=== PATIENT | male | born 1930 | race Caucasian/White ===

== ENCOUNTER 2018-11-24 17:01 | Inpatient (IN) ==
[2018-11-24] MEDS ORDERED: DUONEB (A & A) INH ONE (17:24)
[2018-11-24] MEDS ORDERED: SOLU-MEDROL IV ONE (17:24)
[2018-11-24 18:10] LABS: ALLEN TEST NO; BE 2.1 mmoll (-3.0-3.0); BLOOD TYPE ARTERIAL; HCO3-(ACT) 26.4 mmoll (20.0-26.0); O2(CT) 17.6 mL/dL (15.0-23.0); O2HB 92.9 % (95.0-99.0); PCO2(98.6) 35 mmHg (35-45); PO2(98.6) 67 mmHg (60-100); SAMPLE BLOOD; SAO2 93.9 % (95.0-100.0); THB 13.5 g/dL (11.5-17.4); pH(98.6) 7.47 (7.35-7.45)
--- NOTE | 2018-11-24 18:10 | Diag Imaging Result Doc PS360 ---
EXAM: CHEST-2 VIEWS HISTORY: sob TECHNIQUE: Chest two views COMPARISON: 07/28/2018 FINDINGS: The lungs are hyperexpanded. No cardiomegaly. No pleural effusions. There are increased interstitial markings in the lower lungs, left greater than right. IMPRESSION: 1.Emphysema 2.Basilar infiltrates Electronically signed by Bill Hardy 11/24/2018 6:08 PM
[2018-11-24 18:11] LABS: MODALITY CANNULA
[2018-11-24] MEDS ORDERED: ROCEPHIN 1 GM in NS 50 ML IV ONE (18:20)
--- NOTE | 2018-11-24 18:20 | PROVIDER DOCUMENTATION ---
HPI-Respiratory General - General Chief Complaint: Shortness of Breath Stated Complaint: SOB Time Seen by Provider: 11/24/18 17:22 Allergies/Adverse Reactions: Patient Allergies Allergy/AdvReac Type Severity Reaction Status Date / Time aspirin AdvReac ABDOMINAL Verified 11/24/18 18:38 PAIN Milk Containing Products AdvReac ABDOMINAL Verified 11/24/18 18:38 PAIN Home Medications: Home Medication List Medication Instructions Recorded Confirmed Last Taken Type Latanoprost 0.005% Oph Soln 1 drop BOTH EYES HS 06/28/16 03/30/18 04/03/18 21:00 History [Xalatan 0.005% Oph Soln] Dorzolamide/Timolol Ophth Soln 1 drop BOTH EYES BID 08/23/16 03/30/18 04/03/18 21:00 History [Cosopt Ophth Soln] Carbidopa/Levodopa [Carbidopa-Levo 1.5 tab PO TID 03/30/18 03/30/18 04/03/18 21:00 History ER 25-100 Tab] Duloxetine HCl 60 mg PO DAILY 03/30/18 03/30/18 04/03/18 09:00 History Ferrous Sulfate [Iron] 325 mg PO DAILY 03/30/18 03/30/18 04/03/18 09:00 History Fluticasone/Salmet 500/50 INH 1 puff INH BID 03/30/18 04/04/18 04/04/18 08:00 History [Advair 500/50 Diskus] Rivastigmine [Exelon 9.5MG/24Hrs] 1 patch TOP Q24H 03/30/18 04/04/18 04/03/18 09:00 History Tamsulosin [Flomax] 0.4 mg PO DAILY 03/30/18 03/30/18 04/03/18 09:00 History - History of Present Illness-Resp Nature of Presenting Problem: reports having resp distress on exertion. his doctor seen him on tuesday for ocugh and congestion, was given amoxil by tueness change the course to levaquin since then he has not feeling better. Review of Systems - Adult - REVIEW OF SYSTEMS - ADULT Constitutional: reports: no symptoms reported Eyes: reports: no symptoms reported Ears, Nose, Mouth & Throat: reports: no symptoms reported Cardiovascular: reports: no symptoms reported Respiratory: reports: no symptoms reported Gastrointestinal: reports: no symptoms reported Genitourinary: reports: no symptoms reported Musculoskeletal: reports: no symptoms reported Integumentary: reports: no symptoms reported Neurological: reports: no symptoms reported Psychiatric: reports: no symptoms reported Endocrine: reports: no symptoms reported Hematologic/Lymphatic: reports: no symptoms reported Allergic/Immunologic: reports: no symptoms reported All Other Systems: Reviewed and Negative Past History - Adult - PAST MEDICAL HISTORY-ADULT Review of Records: reports: Old Records Reviewed, Nursing Assessment Review, Medications Reviewed, Social history reviewed & non-contributory. Major Childhood Illnesses: reports: denies history Cardiovascular: reports: denies history Respiratory: reports: COPD Gastrointestinal: reports: denies history Obstetrical/Gynecological: reports: denies history Genitourinary: reports: denies history Musculoskeletal: reports: denies history Neurological: reports: denies history Endocrine/Immune: reports: denies history Other Conditions: reports: denies history - PRIOR SURGERIES/PROCEDURES Surgical/Procedure History: reports: appendectomy, cholecystectomy, hernia repair - IMMUNIZATION STATUS Childhood Immunizations: See Nurse Assessment Flu Vaccine: See Nurse Assessment - FAMILY HISTORY Family History: reviewed, not pertinent - SOCIAL HISTORY Smoking: denies Substance Use: none/never Alcohol Use Frequency: never Physical Exam-General - PHYSICAL EXAM-ADULT Initial Vital Signs Reviewed: Yes - CONSTITUTIONAL General Appearance: appears well, alert, moderate distress - EYES Eyes: PERRL/EOMI, pink conjunctivae - HEAD, EARS, NOSE, MOUTH & THROAT HENMT: normocephalic/atraumatic, other (dry mucous membrane) - NECK Neck: non-tender, full range of motion - RESPIRATORY Respiratory: chest non-tender, decreased breath sounds, accessory muscle use - CARDIOVASCULAR Cardiovascular: normal peripheral pulses, tachycardia - GASTROINTESTINAL (ABDOMEN) Abdominal Exam: normal bowel sounds, non tender, soft - MUSCULOSKELETAL Back Exam: normal inspection, no CVA tenderness, no vertebral tenderness Extremity: normal range of motion, non-tender Peripheral Pulses: radial (R): 2+, radial (L): 2+, dorsalis-pedis (R): 2+, dorsalis-pedis (L): 2+ - SKIN Integumentary: warm/dry - NEUROLOGIC Neurologic: grossly normal, no motor/sensory deficits - PSYCHIATRIC Psych/Mental Status: normal mood/affect, normal thought content, normal thought process, oriented x 3 Progress - PLAN OF CARE/RESULTS Progress/Plan/Lab Results: Vital Signs - 8 hr 11/24/18 17:07 11/24/18 17:37 11/24/18 18:01 Temperature 98.0 F Pulse Rate 104 H 100 H 87 Respiratory Rate 19 32 H 18 Blood Pressure 110/64 119/74 O2 Sat by Pulse Oximetry 89 L 94 L 94 L 11/24/18 19:32 Temperature Pulse Rate 100 H Respiratory Rate 27 H Blood Pressure 110/76 O2 Sat by Pulse Oximetry 96 Laboratory Results - last 24 hr 11/24/18 11/24/18 11/24/18 18:00 18:23 18:23 WBC RBC Hgb Hct MCV MCH MCHC RDW Std Deviation Plt Count MPV Immature Gran % (Auto) Neut % (Auto) Lymph % (Auto) [place] % (Auto) Eos % (Auto) Baso % (Auto) Immature Gran # (Auto) Neut # (Auto) Lymph # (Auto) [place] # (Auto) Eos # (Auto) Baso # (Auto) PT INR PTT (Actin FS) Specimen Type ARTERIAL Sample Site R BRACHIAL pH 7.47 H pCO2 35 pO2 67 HCO3 26.4 H Base Excess 2.1 Oxyhemoglobin 92.9 L ABG O2 Sat (Calculated) 17.6 ABG O2 Saturation 93.9 L ABG Carboxyhemoglobin 1.10 ABG Methemoglobin 0.0 Alec Test NO A-a O2 Difference 89.0 Total Hemoglobin 13.5 Lactate 1.20 Liter Flow 2.0 Blood Gas Modality CANNULA FiO2 % 28.0 Sodium 135 L Potassium 4.3 Chloride 98 Carbon Dioxide 25 Anion Gap 12 BUN 18 Creatinine 0.7 Estimated GFR/1.73 m2 > 60 BUN/Creatinine Ratio 26 Glucose 129 H Calculated Osmolality 274 Calcium 8.8 Total Bilirubin 0.65 AST 52 H ALT 18 Alkaline Phosphatase 78 Creatine Kinase 95 Troponin T Xnd-H-Migkuxlqmdh Pept 330 Total Protein 6.0 L Albumin 3.4 L Globulin 2.6 Albumin/Globulin Ratio 1.3 Plasma Lactate Urine Source Urine Color Urine Turbidity Urine pH Ur Specific [place] Urine Protein Ur Glucose (Stick) Ur Ketones (Stick) Urine Blood Urine Nitrite Urine Bilirubin Urobilinogen Dipstick Urine Leukocytes Urine WBC (Auto) Urine RBC (Auto) U Epithel Cells (Auto) Urine Bacteria (Auto) 11/24/18 11/24/18 11/24/18 18:23 18:23 18:23 WBC RBC Hgb Hct MCV MCH MCHC RDW Std Deviation Plt Count MPV Immature Gran % (Auto) Neut % (Auto) Lymph % (Auto) [place] % (Auto) Eos % (Auto) Baso % (Auto) Immature Gran # (Auto) Neut # (Auto) Lymph # (Auto) [place] # (Auto) Eos # (Auto) Baso # (Auto) PT 15.4 INR 1.13 PTT (Actin FS) 34.9 Specimen Type Sample Site pH pCO2 pO2 HCO3 Base Excess Oxyhemoglobin ABG O2 Sat (Calculated) ABG O2 Saturation ABG Carboxyhemoglobin ABG Methemoglobin Alec Test A-a O2 Difference Total Hemoglobin Lactate Liter Flow Blood Gas Modality FiO2 % Sodium Potassium Chloride Carbon Dioxide Anion Gap BUN Creatinine Estimated GFR/1.73 m2 BUN/Creatinine Ratio Glucose Calculated Osmolality Calcium Total Bilirubin AST ALT Alkaline Phosphatase Creatine Kinase Troponin T < 0.010 Vay-R-Ukqlqgupnrw Pept Total Protein Albumin Globulin Albumin/Globulin Ratio Plasma Lactate 1.1 Urine Source Urine Color Urine Turbidity Urine pH Ur Specific [place] Urine Protein Ur Glucose (Stick) Ur Ketones (Stick) Urine Blood Urine Nitrite Urine Bilirubin Urobilinogen Dipstick Urine Leukocytes Urine WBC (Auto) Urine RBC (Auto) U Epithel Cells (Auto) Urine Bacteria (Auto) 11/24/18 11/24/18 18:23 18:43 WBC 13.85 H RBC 4.56 L Hgb 13.8 L Hct 40.6 L MCV 89.0 MCH 30.3 MCHC 34.0 RDW Std Deviation 13.3 Plt Count 238 MPV 9.8 Immature Gran % (Auto) 2.2 H Neut % (Auto) 76.1 H Lymph % (Auto) 10.2 L [place] % (Auto) 10.7 H Eos % (Auto) 0.4 Baso % (Auto) 0.4 Immature Gran # (Auto) 0.30 H Neut # (Auto) 10.56 H Lymph # (Auto) 1.41 [place] # (Auto) 1.48 H Eos # (Auto) 0.05 Baso # (Auto) 0.05 PT INR PTT (Actin FS) Specimen Type Sample Site pH pCO2 pO2 HCO3 Base Excess Oxyhemoglobin ABG O2 Sat (Calculated) ABG O2 Saturation ABG Carboxyhemoglobin ABG Methemoglobin Alec Test A-a O2 Difference Total Hemoglobin Lactate Liter Flow Blood Gas Modality FiO2 % Sodium Potassium Chloride Carbon Dioxide Anion Gap BUN Creatinine Estimated GFR/1.73 m2 BUN/Creatinine Ratio Glucose Calculated Osmolality Calcium Total Bilirubin AST ALT Alkaline Phosphatase Creatine Kinase Troponin T [id number]-Akqtfnfyxhd Pept Total Protein Albumin Globulin Albumin/Globulin Ratio Plasma Lactate Urine Source CLEAN CATCH Urine Color YELLOW Urine Turbidity CLEAR Urine pH 5.5 Ur Specific [place] 1.028 Urine Protein TRACE A Ur Glucose (Stick) NEGATIVE Ur Ketones (Stick) NEGATIVE Urine Blood NEGATIVE Urine Nitrite NEGATIVE Urine Bilirubin NEGATIVE Urobilinogen Dipstick 2 A Urine Leukocytes NEGATIVE Urine WBC (Auto) <10 Urine RBC (Auto) <10 U Epithel Cells (Auto) <10 Urine Bacteria (Auto) NEGATIVE Orders Category Date Time Status Cardiac Monitoring DIRECTED Care 11/24/18 17:22 Active IV Insertion ORDERED Care 11/24/18 18:24 Completed Notify MD of + Sepsis Screen NOW Care 11/24/18 18:24 Active Notify Physician As Ordered Care 11/24/18 18:24 Active Oxygen Therapy- ED Nursing DIRECTED Care 11/24/18 17:22 Active Saline Loc NOW Care 11/24/18 17:22 Active CHEST-2 VIEWS [RAD] Stat Exams 11/24/18 17:22 Completed ABG [RESP] Routine Lab 11/24/18 18:00 Completed BLOOD CULTURE [BLDCUL] Stat Lab 11/24/18 18:43 Results CBC WITH DIFF [HEME] Stat Lab 11/24/18 18:23 Completed CK PROFILE [SP CHEM] Stat Lab 11/24/18 18:23 Completed COMPREHENSIVE METABOLIC PANEL [CHEM] Stat Lab 11/24/18 18:23 Completed LACTATE, PLASMA [CHEM] Lab 11/24/18 18:23 Completed LACTATE, PLASMA [CHEM] Lab 11/24/18 21:30 Uncollected LACTATE, PLASMA [CHEM] Lab 11/25/18 00:30 Uncollected PRO B-NATRIURETIC PEPTIDE Stat Lab 11/24/18 18:23 Completed PROTIME WITH INR [COAG] Stat Lab 11/24/18 18:23 Completed PTT [COAG] Stat Lab 11/24/18 18:23 Completed TROPONIN T Stat Lab 11/24/18 18:23 Completed URINALYSIS W/POSS RFLX CULT [URINALYSIS] Stat Lab 11/24/18 18:43 Completed 0.9% Sodium Chloride Inj [Ns] 1,000 ml Med 11/24/18 18:25 Discontinued IV 999 mls/hr Albuterol 2.5MG/Ipratrop 0.5MG [Duoneb (A & A)] Med 11/24/18 17:24 Discontinued 3 ml INH NOW ONE CefTRIAXONE [Rocephin] 1 gm Med 11/24/18 18:20 Discontinued 0.9% Sodium Chloride Inj [Ns] 50 ml IV NOW Methylprednisolone Sod Succ [Solu-Medrol] Med 11/24/18 17:24 Discontinued 80 mg IV NOW ONE Aerosol Treatments Routine Oth 11/24/18 17:24 Completed Aerosol Treatments Stat Oth 11/24/18 17:24 Completed CP/SOB/Palp >45 yrs of Age Stat Oth 11/24/18 17:22 Ordered Oxygen Device Stat Oth 11/24/18 18:24 Active EKG [EKG] Stat Ther 11/24/18 17:22 Ordered Result Diagrams: 11/24/18 18:23 11/24/18 18:23 - REASSESSMENT Reassessment #1 Time Reassessed: 19:02 (feeling better after breathing treatment ) - CONSULTS/PCP/HOSPITALIST Notification #1 *Consult/PCP/Hospitalist*: Dr. Gallardo Time Discussed: 19:57 (PNA failed outpatient treatment) Consult Disposition: Admit Departure - Departure Date of Disposition Decision: 11/24/18 Time of Disposition Decision: 19:58 DIAGNOSIS: Bilateral pneumonia, Respiratory disease Disposition: ADMITTED INPATIENT 09 Certified Medical Emergency: Emergent Condition: Stable Referrals and Follow-Ups: Justin Lake MD [Primary Care Provider] - - Critical Care Note This patient required my direct & personal management of CC.: No Attestation - Physician/ OJY Attestation The physician spent face to face time with patient:: Yes Advanced Practice Provider documentation review:: Supervising physician onsite and consulted in the evaluation and care of this patient. The physician did have a face to face encounter with the patient.
[2018-11-24] MEDS ORDERED: NS 1,000 ML IV ONE (18:25)
[2018-11-24 18:47] LABS: BASO# 0.05 X1000 (0.0-0.2); BASO% 0.4 % (0.0-0.8); EOS# 0.05 X1000 (0.0-0.7); EOS% 0.4 % (0.0-10.0); HEMATOCRIT 40.6 % (42.0-52.0); HEMOGLOBIN 13.8 g/dL (14.0-18.0); IMM GRAN% 2.2 % (0.0-0.5); LYMPH# 1.41 X1000 (1.2-3.4); LYMPH% 10.2 % (20.5-51.1); MCH 30.3 PG (27-31); MONO# 1.48 X1000 (0.11-0.59); MONO% 10.7 % (1.7-9.3); MPV 9.8 FL (7.4-10.4); NEUT# 10.56 X1000 (1.4-6.5); NEUT% 76.1 % (42.2-75.2); PLT 238 X1000 (130-400); RBC 4.56 XMIL (4.7-6.1); RDW 13.3 % (11.5-14.5); WBC 13.85 X1000 (4.8-10.8)
[2018-11-24 18:53] LABS: INR 1.13; PROTIME 15.4 Seconds (11.0-16.0)
[2018-11-24 18:54] LABS: PTT 34.9 Seconds (22.3-41.8)
[2018-11-24 19:00] LABS: URINE SOURCE CLEAN CATCH
[2018-11-24 19:07] LABS: BILIRUBIN URINE NEGATIVE (NEGATIVE); BLOOD URINE NEGATIVE (NEGATIVE); COLOR YELLOW; GLUCOSE URINE NEGATIVE (NEGATIVE); KETONE URINE NEGATIVE (NEGATIVE); LEUKOCYTES URINE NEGATIVE (NEGATIVE); NITRITE URINE NEGATIVE (NEGATIVE); PH URINE 5.5; PROTEIN URINE TRACE mg/dL (NEGATIVE); SP GRAVITY URINE 1.028; TURBIDITY URINE CLEAR (CLEAR); UROBILINOGEN URINE 2 mg/dL (NORMAL)
[2018-11-24 19:08] LABS: UR EPITHELIAL CELLS <10 /HPF (<10); URINE BACTERIA NEGATIVE /HPF; URINE RBC <10 /HPF (<10); URINE WBC <10 /HPF (<10)
[2018-11-24 19:21] LABS: AGAP 12; ALB/GLOB RATIO 1.3; ALBUMIN 3.4 g/dL (3.5-5.0); ALKALINE PHOSPHATASE 78 U/L (32-122); BUN 18 mg/dL (8-22); CALCIUM 8.8 mg/dL (8.8-10.2); CHLORIDE 98 mmol/L (98-107); CK PROFILE 95 U/L (24-204); COSMO 274; CREATININE 0.7 mg/dL (0.7-1.2); ESTIMATED GFR > 60; GLUCOSE 129 mg/dL (70-104); GOT 52 U/L (10-34); GPT 18 U/L (10-44); POTASSIUM 4.3 mmol/L (3.5-5.1); SODIUM 135 mmol/L (136-145); TCO2 25 mmol/L (25-35); TOTAL BILIRUBIN 0.65 mg/dL (0.20-1.00)
[2018-11-24] MEDS ORDERED: ZOFRAN IV PRN (20:16)
[2018-11-24] MEDS ORDERED: TYLENOL PO PRN (20:16)
[2018-11-24] MEDS ORDERED: ALBUTEROL NEB INH PRN (20:20)
[2018-11-24] MEDS ORDERED: NS 1,000 ML ONE (21:18)
[2018-11-24] MEDS ORDERED: ROCEPHIN ONE (21:18)
[2018-11-24] MEDS: SOLU-MEDROL IV SCH (21:21)
--- NOTE | 2018-11-24 21:32 | Diag Imaging Result Doc PS360 ---
EXAM: CT THORAX W/O CONTRAST HISTORY: copd. ??pneumonia TECHNIQUE: CT chest without contrast COMPARISON: 09/12/2015 FINDINGS: No pleural effusions. No cardiomegaly. Prominent atherosclerosis. There are calcified mediastinal and hilar nodes with scattered granuloma. Severe emphysema. There are nodular infiltrates in the left lower lobe and smaller infiltrates in the right lower lobe. IMPRESSION: 1.Severe emphysema 2.Basilar infiltrates This exam was performed using automated exposure control, adjustment of mA or kV according to patient size, and/or use of iterative reconstruction technique. Electronically signed by Bill Hardy 11/24/2018 9:30 PM
[2018-11-24] MEDS: DUONEB (A & A) INH SCH (22:26)
--- NOTE | 2018-11-24 22:28 | HISTORY AND PHYSICAL ---
PRIMARY CARE PROVIDER: Justin Lake. CHIEF COMPLAINT: Shortness of breath. HISTORY OF PRESENT ILLNESS: Mr. Basurto is a pleasant 88-year-old male who comes into the emergency room after having around 5 days of cough, congestion and shortness of breath. He was apparently given a penicillin-based antibiotic. Spoke to his PCP again on Tuesday and I believe was changed over to Levaquin. He is still not feeling better. He is tachypneic in the emergency room and hypoxic on arrival. He has a past medical history of COPD, GERD, muscle spasms, peripheral vascular disease, vitamin D deficiency, essential tremor and hyperlipidemia. Patient is not on home oxygen. At any rate, chest x-ray was suggestive of a possible infiltrate. A CT scan of his thorax is pending. He will be admitted for further evaluation and treatment. REVIEW OF SYSTEMS: Fourteen point review of systems conducted with the patient. Pertinent positives listed above in the HPI. All other systems reviewed and found to be negative. PREVIOUS MEDICAL HISTORY: See HPI PREVIOUS SURGICAL HISTORY: Appendectomy, cholecystectomy, cataract removal bilaterally, left and right shoulder repair, ERCP, multiple endoscopies and hernia repair. HOME MEDICATIONS: A list is not available on admission. An order was placed to reconcile home medications. These will be restarted when appropriate. ALLERGIES: Allergic to aspirin and milk-containing products. FAMILY HISTORY: Both parents had stomach cancer and . SOCIAL HISTORY: Former smoker. Had around a 60 pack-year history. Quit in 1994. . Retired bicycle repairer. No alcohol. No illicit drugs. PHYSICAL EXAMINATION: VITAL SIGNS: Temperature 98, pulse 87, respirations 27, blood pressure 110/76, oxygen saturation 96% on 3 L nasal cannula. GENERAL: Luciano 88-year-old male lying in the ER stretcher, answers all questions appropriately, has mild confusion but is alert and oriented to person, place and situation. He is in no acute distress. HEENT: Head is atraumatic, normocephalic. Pupils equal, round, reactive to light. Extraocular eye movement is intact. Sclerae are anicteric. Conjunctiva is pink. Oral mucosa is moist. NECK: Supple. No JVD. No thyromegaly. Trachea is midline. No cervical lymphadenopathy. CARDIAC: S1, S2 appreciated. No murmurs, gallops or rubs. LUNGS: Mild expiratory wheeze. Otherwise clear to auscultation. Symmetric rise and fall with respirations. No rhonchi. No rales. ABDOMEN: Soft, nondistended, nontender. Bowel sounds present all 4 quadrants, normoactive. No pulsatile mass. No organomegaly. EXTREMITIES: No clubbing, cyanosis or edema. Two-plus pedal pulses bilaterally. GENITOURINARY: No bladder distention. Patient voids. Otherwise deferred. NEUROLOGICAL: Alert and oriented to person, place, situation. Does have mild confusion, is a somewhat poor historian. No focal or motor deficits noted. Otherwise nonfocal examination. DIAGNOSTIC DATA: Chest x-ray suggests basilar infiltrates. Also noted that the x-ray shows emphysema. Infiltrates are somewhat impressive. A CT noncontrast of the thorax is pending. LABORATORY DATA: WBC 13.85. Hemoglobin 13.8. Hematocrit 40.6. Platelet count 238. Coagulation studies within normal limits. D-dimer 0.64. ABG: pH 7.47, pCO2 of 35, pO2 of 67, bicarbonate 26.4. This was on 2 L nasal cannula. Sodium 135. Potassium 4.3. Chloride 98. Carbon dioxide 25. BUN 18. Creatinine 0.7. Glucose 129. ASSESSMENT AND PLAN: 1. Chronic obstructive pulmonary disease with exacerbation. CT of the thorax has been ordered to rule out pneumonia. Patient has had treatment with 2 antibiotics and received a dose of Rocephin in the emergency room. We will not give further antibiotics at this time. We will give 60 mg of Solu-Medrol q.12 hours times 4 doses. DuoNebs q.6 hours. Albuterol q.[address] hours p[address]r.n. If the CT scan comes back positive for infiltrates, we will start antibiotic treatment for community-acquired pneumonia. 2. Hyperlipidemia, aware. We will restart statin when medications are reconciled. 3. Leukocytosis, very marginal. We will continue to monitor. 4. Hyperglycemia. Check hemoglobin A1c. Patient does not have a history of diabetes mellitus. Further recommendations per patient clinical course. Dictated by OLIVIA Peng for Joseliot Gallardo MD cc: OLIVIA Peng MD Agree with the above. the following is my own face to face evaluation. patient with nonproductive cough and dyspnea not improving on outpatient antibiotics. suspect viral URI and mild COPD exacerbation. obtain CT chest to rule out pneumonia. place on duonebs and steroids. if no pneumonia is identified and symptoms are improving then may be able to be discharged home tomorrow. if ct shows pneumonia then will likely need IV abx for a couple days. lungs with slight expiratory wheeze and minimally decreased air entry throughout. no accessory muscle use or increased work of breathing. MTDD
[2018-11-25] MEDS: COSOPT OPHTH SOLN BOTH EYES SCH ×3 (01:22→20:07)
[2018-11-25] MEDS: XALATAN 0.005% OPH SOLN BOTH EYES SCH ×2 (01:22→20:07)
[2018-11-25] MEDS: DUONEB (A & A) INH SCH ×4 (03:56→22:36)
[2018-11-25] MEDS ORDERED: VANCOMYCIN IV PER PHARMACY MISC SCH (05:45)
[2018-11-25] MEDS ORDERED: VANCOMYCIN 2,200 MG in NS 500 ML IV ONE (06:00)
[2018-11-25] MEDS: ADVAIR 500/50 DISKUS INH SCH ×3 (06:04→22:36)
[2018-11-25 07:52] LABS: BASO# 0.02 X1000 (0.0-0.2); BASO% 0.2 % (0.0-0.8); HEMATOCRIT 38.5 % (42.0-52.0); HEMOGLOBIN 13.1 g/dL (14.0-18.0); IMM GRAN# 0.31 X1000 (0.0-0.04); IMM GRAN% 2.8 % (0.0-0.5); LYMPH# 0.66 X1000 (1.2-3.4); MCH 30.5 PG (27-31); MCV 89.7 FL (81-99); MONO# 0.21 X1000 (0.11-0.59); MONO% 1.9 % (1.7-9.3); MPV 9.6 FL (7.4-10.4); NEUT# 9.74 X1000 (1.4-6.5); NEUT% 89.1 % (42.2-75.2); PLT 215 X1000 (130-400); RBC 4.29 XMIL (4.7-6.1); RDW 13.2 % (11.5-14.5); WBC 10.94 X1000 (4.8-10.8)
[2018-11-25 08:05] LABS: AGAP 11; BUN 15 mg/dL (8-22); CALCIUM 8.5 mg/dL (8.8-10.2); CHLORIDE 101 mmol/L (98-107); COSMO 282; CREATININE 0.7 mg/dL (0.7-1.2); ESTIMATED GFR > 60; GLUCOSE 233 mg/dL (70-104); POTASSIUM 4.4 mmol/L (3.5-5.1); SODIUM 137 mmol/L (136-145); TCO2 25 mmol/L (25-35)
[2018-11-25 08:42] LABS: BANDS 14 % (0-1); LYMPHS 4 % (21-51); MONO 2 % (1-9); SEGS 78 % (42-75)
[2018-11-25] MEDS: MAXIPIME 2 GM in NS 100 ML IV SCH ×2 (10:33→20:06)
[2018-11-25] MEDS: SINEMET CR 25/100 PO SCH ×3 (10:33→17:43)
[2018-11-25] MEDS: CYMBALTA PO SCH (10:35)
[2018-11-25] MEDS: FLOMAX PO SCH (10:35)
[2018-11-25] MEDS: SOLU-MEDROL IV SCH ×2 (10:35→20:06)
--- NOTE | 2018-11-25 16:27 | PROGRESS NOTE ---
DATE: 11/25/2018 SUBJECTIVE: This morning Mr. Basurto refers to be feeling a little better. Mr. Basurto got admitted yesterday. He has a history of severe COPD, not on any oxygen at home. Only follows up with his primary care doctor. No permanent followup. He said he was having some worsened cough with greenish sputum production. Went to his primary care doctor. He was initially given amoxicillin. Two days later he did not improve, went back. Antibiotic was changed to Levaquin. Two days later they had to call back because of worsening symptoms, and they were advised to come to the emergency room where, upon presentation, a CT scan of the lungs did show bibasilar infiltrate and severe emphysema with concerning that this is pneumonia. PHYSICAL EXAMINATION: Current vitals: Blood pressure is 117/65, pulse 69, respirations 18, temperature 97.5 degrees. Patient is saturating 97% on nasal cannula. General exam: Mr. Basurto is an 88-year-old gentleman. He is extremely nice and cooperative with the interrogation and physical exams. was at the bedside at the time of the encounter. Mr. Basurto did not seem to be in any distress. HEENT: Mucosa is pink and moist. Anicteric. Acyanotic. Neck: Neck is supple. Chest: Air entry was bilaterally reduced. There is prolonged expiratory phase of respiration. There is diffuse expiratory wheezing and also crackles in the posterior lung palumbo. Cardiovascular: Regular rate and rhythm. Abdomen: Soft, nontender. Extremities: No pedal edema. HOSIERY MENDER: Patient is awake, alert, oriented. There is no focal neurological deficit. IMAGING STUDIES: On abdominal exam, there is an old midline surgical scar. LABORATORY DATA: This has also been reviewed. WBC is down to 10.94, hemoglobin is 13.1, platelet count of 215. Chemistry is completely normal. Glucose is 233. CURRENT MEDICATIONS: Have all been reviewed. He is on cefepime and vancomycin as antimicrobials. ASSESSMENT: 1. Acute hypoxemic respiratory failure. Patient is currently on nasal cannula oxygen therapy. Oxygen saturation on admission was about 89 on room air; it is up to about 97 on nasal cannula, which we continue to titrate down. 2. Bibasilar infiltrate concerning for pneumonia. Patient failed outpatient therapy. He is currently on intravenous cefepime and vancomycin. Sputum culture and blood cultures have all been ordered. Will be pending the results to tailor the antibiotics accordingly. 3. Severe chronic obstructive pulmonary disease in exacerbation. We will continue with the standard of care. 4. Hyperglycemia secondary to steroid use. We will use insulin sliding scale to control this. 5. History of Parkinson disease on carbidopa/levodopa and rivastigmine. We will restart his home medications. PLAN: So, in general, I think Mr. Basurto is fairly stable. He failed outpatient antimicrobial therapy for pneumonia and COPD exacerbation. We are going to continue with the IV therapy; also on steroids and bronchodilation therapy. We will re-evaluate him tomorrow and make changes accordingly. cc: Johnson Ozuna MD
[2018-11-26] MEDS: DUONEB (A & A) INH SCH ×4 (03:57→22:04)
[2018-11-26] MEDS: VANCOMYCIN 1,600 MG in NS 250 ML IV SCH (05:15)
[2018-11-26 05:37] LABS: ALLEN TEST YES; BLOOD TYPE ARTERIAL; HCO3-(ACT) 25.5 mmoll (20.0-26.0); METHB 1.4 % (0.0-1.5); O2(CT) 15.9 mL/dL (15.0-23.0); PCO2(98.6) 38 mmHg (35-45); PO2(98.6) 53 mmHg (60-100); SAMPLE BLOOD; SAO2 92.3 % (95.0-100.0); THB 12.7 g/dL (11.5-17.4); pH(98.6) 7.43 (7.35-7.45)
[2018-11-26 05:43] LABS: O2HB 89.3 % (95.0-99.0)
[2018-11-26 06:03] LABS: MODALITY CANNULA
[2018-11-26 07:52] LABS: BASO# 0.02 X1000 (0.0-0.2); BASO% 0.1 % (0.0-0.8); EOS# 0.01 X1000 (0.0-0.7); HEMATOCRIT 36.9 % (42.0-52.0); HEMOGLOBIN 12.5 g/dL (14.0-18.0); IMM GRAN# 0.32 X1000 (0.0-0.04); IMM GRAN% 1.2 % (0.0-0.5); LYMPH# 1.36 X1000 (1.2-3.4); LYMPH% 5.1 % (20.5-51.1); MCH 30.4 PG (27-31); MCHC 33.9 g/dL (33-37); MCV 89.8 FL (81-99); MONO% 3.3 % (1.7-9.3); MPV 9.6 FL (7.4-10.4); NEUT# 24.26 X1000 (1.4-6.5); NEUT% 90.3 % (42.2-75.2); PLT 245 X1000 (130-400); RBC 4.11 XMIL (4.7-6.1); RDW 13.2 % (11.5-14.5); WBC 26.87 X1000 (4.8-10.8)
[2018-11-26 08:15] LABS: AGAP 9; BUN 17 mg/dL (8-22); CALCIUM 8.6 mg/dL (8.8-10.2); CHLORIDE 103 mmol/L (98-107); COSMO 277; CREATININE 0.6 mg/dL (0.7-1.2); ESTIMATED GFR > 60; GLUCOSE 162 mg/dL (70-104); PHOSPHORUS 2.5 mg/dL (2.7-4.5); POTASSIUM 4.3 mmol/L (3.5-5.1); SODIUM 136 mmol/L (136-145); TCO2 24 mmol/L (25-35)
--- NOTE | 2018-11-26 10:44 | PROGRESS NOTE ---
DATE: 11/26/2018 This morning, I saw Mr. Basurto in his hospital bed. He was actually using the bedside commode. The was at the bedside. Mr. Basurto refers to be feeling a whole lot better. He said the breathing has significantly improved; however, he has been having difficulty passing his urine. He is known to have BPH. He is on tamsulosin for a very long time now, but he said that has not been working. Yesterday he had to have an in-and-out catheterization. This morning, he said he is having a little bit of difficulty passing his urine, but he is making it. OBJECTIVE: His current vitals: Blood pressure is 111/70, pulse of 78, respirations 20, temperature is 97.6 degrees. The patient was about 92% on room air. On general exam, Mr. Basurto is a 88-year-old gentleman. He was sitting up at the bedside commode. He was not in any distress. Mucosa is pink and moist. Anicteric. Acyanotic. Neck is supple. No JVD. Chest: Air entry was bilaterally reduced, more so to the left posterior lung field. Mild crepitations, but no wheezing. No rhonchi. There was a mild prolonged expiratory phase of respiration. Cardiovascular: Regular rate and rhythm. No murmurs, no rubs, no gallops. Gastrointestinal: Abdomen is soft, nontender. Extremities: No pedal edema. Central Nervous System: Unremarkable. LABORATORY DATA: WBC gone up to 26.86, hemoglobin is 12.5, platelet count of 245,000. The differential is still pending. ABG is reviewed; PO2 was 53 this morning. Chemistry is also reviewed and is completely normal. No imaging studies this morning. ASSESSMENT: 1. Acute hypoxemic respiratory failure, on presentation. The patient continues to be needing oxygen therapy. 2. Bibasilar infiltrates concerning for bibasilar pneumonia. The patient is currently on cefepime and vancomycin. He has been afebrile. Blood cultures have been 48 hours negative. We will continue with the current IV antibiotics and hopefully transition it to p.o. after 72 hours. 3. Severe chronic obstructive pulmonary disease in exacerbation. We will continue with the standard of care, including steroids, bronchodilation therapy, and antimicrobial. 4. Hyperglycemia secondary to steroid use. We will continue using insulin therapy. 5. History of Parkinson disease. The patient is on carbidopa/levodopa and rivastigmine. We will continue these. 6. Urine retention due to obstructive uropathy from BPH. The patient has a history of BPH already, and he is on tamsulosin. We are going to increase the dose on that. We will also add Avodart to help with the urination. If these measures do not improve, we will put the Salazar catheter indwelling for a short period of time and also consult Urology. PLAN: In general, I think Mr. Basurto is clinically improving. He is still slightly hypoxemic. I anticipate that he probably will be needing oxygen upon discharge. His white cell count is slightly elevated, which I think is all due to the steroid use. We are going to continue with the IV antibiotics, steroids, and bronchodilation therapy today. We have also been addressing his urinary issues. Hopefully, in the next 24 to 48 hours, we can discharge Mr. Basurto, depending on his hospital course. cc: Johnson Ozuna MD
[2018-11-26] MEDS: ADVAIR 500/50 DISKUS INH SCH ×2 (10:50→19:43)
[2018-11-26 11:02] LABS: BANDS 8 % (0-1); LYMPHS 2 % (21-51); SEGS 86 % (42-75)
[2018-11-26] MEDS: SOLU-MEDROL IV SCH (11:23)
[2018-11-26] MEDS: MAXIPIME 2 GM in NS 100 ML IV SCH ×2 (11:24→22:34)
[2018-11-26] MEDS: SINEMET CR 25/100 PO SCH ×3 (11:24→18:06)
[2018-11-26] MEDS: CYMBALTA PO SCH (11:25)
[2018-11-26] MEDS: COSOPT OPHTH SOLN BOTH EYES SCH ×2 (11:26→20:10)
[2018-11-26] MEDS: FLOMAX PO SCH ×2 (11:30→20:10)
[2018-11-26] MEDS: AVODART PO SCH (18:07)
[2018-11-26] MEDS: XALATAN 0.005% OPH SOLN BOTH EYES SCH (20:10)
[2018-11-27] MEDS ORDERED: HALDOL IM PRN (01:40)
[2018-11-27] MEDS: VANCOMYCIN 1,600 MG in NS 250 ML IV SCH (05:08)
[2018-11-27 05:27] LABS: ALLEN TEST YES; BE 2.6 mmoll (-3.0-3.0); BLOOD TYPE ARTERIAL; HCO3-(ACT) 26.8 mmoll (20.0-26.0); METHB 1.3 % (0.0-1.5); O2(CT) 16.9 mL/dL (15.0-23.0); O2HB 93.1 % (95.0-99.0); PCO2(98.6) 41 mmHg (35-45); PO2(98.6) 64 mmHg (60-100); SAMPLE BLOOD; THB 12.9 g/dL (11.5-17.4); pH(98.6) 7.43 (7.35-7.45)
[2018-11-27 05:28] LABS: MODALITY ROOM AIR
[2018-11-27 06:45] LABS: BASO# 0.03 X1000 (0.0-0.2); BASO% 0.2 % (0.0-0.8); HEMOGLOBIN 13.1 g/dL (14.0-18.0); IMM GRAN% 1.1 % (0.0-0.5); LYMPH# 1.53 X1000 (1.2-3.4); LYMPH% 8.8 % (20.5-51.1); MCHC 34.5 g/dL (33-37); MCV 89.8 FL (81-99); MONO# 1.13 X1000 (0.11-0.59); MONO% 6.5 % (1.7-9.3); MPV 9.4 FL (7.4-10.4); NEUT# 14.53 X1000 (1.4-6.5); NEUT% 83.4 % (42.2-75.2); PLT 225 X1000 (130-400); RBC 4.23 XMIL (4.7-6.1); RDW 13.3 % (11.5-14.5); WBC 17.42 X1000 (4.8-10.8)
[2018-11-27 07:15] LABS: AGAP 9; CHLORIDE 104 mmol/L (98-107); POTASSIUM 4.1 mmol/L (3.5-5.1); SODIUM 139 mmol/L (136-145); TCO2 26 mmol/L (25-35)
[2018-11-27 07:16] LABS: ALBUMIN 2.9 g/dL (3.5-5.0); BUN 17 mg/dL (8-22); CALCIUM 8.5 mg/dL (8.8-10.2); COSMO 278; CREATININE 0.6 mg/dL (0.7-1.2); ESTIMATED GFR > 60; GLUCOSE 81 mg/dL (70-104); PHOSPHORUS 2.5 mg/dL (2.7-4.5)
[2018-11-27] MEDS: MAXIPIME 2 GM in NS 100 ML IV SCH ×2 (10:20→22:56)
[2018-11-27] MEDS: SINEMET CR 25/100 PO SCH ×3 (10:20→17:34)
[2018-11-27] MEDS: AVODART PO SCH (10:21)
[2018-11-27] MEDS: CYMBALTA PO SCH (10:21)
[2018-11-27] MEDS: DUONEB (A & A) INH SCH ×3 (11:12→21:55)
[2018-11-27] MEDS: ADVAIR 500/50 DISKUS INH SCH ×2 (11:13→21:55)
--- NOTE | 2018-11-27 11:25 | Diag Imaging Result Doc PS360 ---
EXAM: CHEST-2 VIEWS HISTORY: hypoxia TECHNIQUE: Chest two views COMPARISON: 11/24/2018 FINDINGS: The lungs are hyperexpanded. No cardiomegaly. The vessels are not distended. There are increased interstitial markings in the lower lungs. These are less pronounced in the left base compared to the prior study. IMPRESSION: Mild interval improvement. Electronically signed by Bill Hardy 11/27/2018 11:23 AM
[2018-11-27 12:16] LABS: BILIRUBIN URINE NEGATIVE (NEGATIVE); BLOOD URINE TRACE (NEGATIVE); COLOR YELLOW; GLUCOSE URINE NEGATIVE (NEGATIVE); KETONE URINE NEGATIVE (NEGATIVE); LEUKOCYTES URINE NEGATIVE (NEGATIVE); NITRITE URINE NEGATIVE (NEGATIVE); PH URINE 6.5; PROTEIN URINE NEGATIVE (NEGATIVE); SP GRAVITY URINE 1.001; TURBIDITY URINE CLEAR (CLEAR); URINE SOURCE CATH; UROBILINOGEN URINE NORMAL (NORMAL)
[2018-11-27 12:17] LABS: UR EPITHELIAL CELLS <10 /HPF (<10); URINE BACTERIA NEGATIVE /HPF; URINE RBC <10 /HPF (<10); URINE WBC <10 /HPF (<10)
[2018-11-27] MEDS: COSOPT OPHTH SOLN BOTH EYES SCH ×2 (13:32→23:03)
[2018-11-27] MEDS ORDERED: SODIUM PHOSPHATE 40 MEQ in NS 250 ML IV ONE (13:38)
--- NOTE | 2018-11-27 14:17 | PROGRESS NOTE ---
DATE: 11/27/2018 SUBJECTIVE: He is complaining of abdominal distention and difficulty urinating. His bladder scan was positive. OBJECTIVE: Blood pressure 100/75, heart rate 58, respiratory rate of 18, temperature was 97.7 degrees, he has 90% to 94% on room air.Cardiovascular: Regular rate and rhythm. Pulmonary: He has diminished breath sounds throughout. No wheezing, though. Gastrointestinal: Soft, nontender, nondistended. Bowel sounds are positive. LABORATORY DATA: White count 17, hemoglobin 13, hematocrit 38 platelets 225,000. PH 7.43, pCO2 of 41, PaO2 of 64. Basic was normal except his phosphorus was 2.5. PROBLEM LIST: 1. Acute hypoxic respiratory failure. We will continue breathing treatments, O2, and follow closely. 2. Bibasilar pneumonia. He is on cefepime and vancomycin. His white count is trending downward. Continue IV antibiotics for now. 3. Chronic obstructive pulmonary disease exacerbation is improving. He is on bronchodilators, steroids which I think I will titrate down and follow. 4. Steroid-induced hyperglycemia. We will continue to follow. 5. Urinary retention. He is on Avodart and Flomax, but we did end up having to put a Salazar. 6. Hypophosphatemia. We will continue treatment and follow. DISPOSITION: I think he is probably getting close to being able to get out of here pending his clinical status. Dr. Ozuna has requested a Urology consult. I certainly think he will need follow-up for a voiding trial as an outpatient, but he will resume care tomorrow. cc: Bossman Levine MD
[2018-11-27] MEDS: FLOMAX PO SCH (23:01)
[2018-11-27] MEDS: XALATAN 0.005% OPH SOLN BOTH EYES SCH (23:03)
[2018-11-28] MEDS: DUONEB (A & A) INH SCH ×4 (03:40→22:50)
[2018-11-28 05:01] LABS: BASO# 0.02 X1000 (0.0-0.2); BASO% 0.2 % (0.0-0.8); EOS# 0.04 X1000 (0.0-0.7); EOS% 0.3 % (0.0-10.0); HEMATOCRIT 38.8 % (42.0-52.0); IMM GRAN# 0.16 X1000 (0.0-0.04); IMM GRAN% 1.3 % (0.0-0.5); LYMPH# 1.32 X1000 (1.2-3.4); LYMPH% 10.8 % (20.5-51.1); MCH 30.1 PG (27-31); MCHC 33.5 g/dL (33-37); MCV 89.8 FL (81-99); MONO# 1.02 X1000 (0.11-0.59); MONO% 8.3 % (1.7-9.3); MPV 8.9 FL (7.4-10.4); NEUT% 79.1 % (42.2-75.2); PLT 206 X1000 (130-400); RBC 4.32 XMIL (4.7-6.1); RDW 13.4 % (11.5-14.5); WBC 12.26 X1000 (4.8-10.8)
[2018-11-28 05:22] LABS: SODIUM 137 mmol/L (136-145)
[2018-11-28 05:23] LABS: AGAP 8; BUN 14 mg/dL (8-22); CALCIUM 7.8 mg/dL (8.8-10.2); CHLORIDE 101 mmol/L (98-107); COSMO 274; CREATININE 0.5 mg/dL (0.7-1.2); ESTIMATED GFR > 60; GLUCOSE 87 mg/dL (70-104); TCO2 28 mmol/L (25-35)
[2018-11-28 05:28] LABS: MAGNESIUM 1.8 mg/dL (1.5-2.7); PHOSPHORUS 2.7 mg/dL (2.7-4.5)
[2018-11-28] MEDS: VANCOMYCIN 1 GM/NS 1 GM/250 ML IVPB IV SCH ×2 (06:22→17:24)
--- NOTE | 2018-11-28 07:43 | EKG Report ---
Test Performed on : 11/24/2018 5:34:21 PM Test Reason : sob Blood Pressure : / mmHG Vent. Rate : 104 BPM Atrial Rate : 104 BPM P-R Int : 148 ms QRS Dur : 076 ms QT Int : 308 ms P-R-T Axes : 087 057 069 degrees QTc Int : 405 ms Sinus tachycardia. Otherwise normal ECG When compared with ECG of 18-NOV-2016 11:45, premature atrial complexes. are no longer present Unconfirmed Result
--- NOTE | 2018-11-28 08:48 | CONSULTATION ---
DATE OF CONSULTATION: 11/27/2018 ATTENDING AND REFERRING PHYSICIAN: Hospitalist. HISTORY OF PRESENT ILLNESS: This 88-year-old male was admitted with exacerbation of COPD with possible pneumonia. The patient has been unable to void to completion. His postvoid residuals by scan have been over 800 mL. In an out catheterizations about the same. The patient again developed suprapubic area discomfort. A Salazar catheter was placed and over 800 mL of urine returned. The patient is on Flomax at 0.8 mg every day and Avodart 0.5 mg a day. He has been on this for several years. The patient was previously followed in the [facility] for an enlarged prostate with obstructive voiding, abnormal prostate exam, and elevated PSAs. He has had a prostate ultrasound and biopsies several years ago. After starting Avodart, his PSA dropped. In July 2016, it was 1.21. The patient states he feels much better with the Salazar catheter in place but does not like having it in place. The patient states he still has a cough. PAST MEDICAL HISTORY: Hypertension, peripheral vascular disease, COPD, gastroesophageal reflux disease, elevated cholesterol, enlarged prostate with obstructive voiding, elevated PSA. CURRENT MEDICATIONS: Documented on the chart. PAST SURGICAL HISTORY: Appendectomy, cholecystectomy, hemorrhoidectomy, hernia repair, prostate biopsy. SOCIAL HISTORY: No cigarette use since 1994. Prior to that, he smoked a pack a day for many years. ETOH use negative. He lives at home with his . ALLERGIES: No known drug allergies. REVIEW OF SYSTEMS: He states he was doing well and follows up with his family physician regularly. He denies any problems with diabetes, seizures, recent chest pains, or bowel problems. PHYSICAL EXAMINATION: General: A normally developed, well-nourished, age apparent, white male, oriented in all ways and cooperative. HEENT: Normal for age. Lungs: Rales anteriorly. Distant breath sounds. Cardiovascular: Regular rate and rhythm. A grade 2/4 holosystolic murmur. Abdomen: Mildly protuberant soft, nontender. No hepatosplenomegaly or masses. Normal bowel sounds. : Uncircumcised male with Salazar catheter in place. Foreskin is reduced. Both testes are down and palpably normal. 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 No inguinal hernias. Rectal: Normal sphincter tone. Prostate about 80 g, smooth, and symmetric with the right side prominent. No change from multiple previous exams. Neurologic: No focal deficits. Extremities: No clubbing, cyanosis, or edema. LABORATORY EVALUATION: He has a white count of 12.26, a hemoglobin of 13, hematocrit of 38.8, platelets are 206,000. Serum electrolytes are normal. BUN 14, creatinine 0.5. IMPRESSION: 1. Urinary retention with indwelling Salazar catheter. 2. History of enlarged prostate with obstructive voiding symptoms. 3. History of abnormal prostate examination. 4. History of elevated prostate-specific antigen, status post benign prostate biopsies several years ago. RECOMMENDATIONS: 1. Recommend continuing Avodart at 0.5 mg a day and Flomax at 0.8 mg a day. This is the maximum medical therapy for an enlarged prostate. 2. Since the bladder gets distended, it can take up to 1 week for the tone to be regained and to allow the bladder to contract normally. Recommend keeping his Salazar in for at least 1 week. We will do a voiding trial either here or in the office in 1 week. Thank you for this consultation. cc: Italo Acuna MD
[2018-11-28] MEDS: CYMBALTA PO SCH (09:41)
[2018-11-28] MEDS: SINEMET CR 25/100 PO SCH ×3 (09:42→17:24)
[2018-11-28] MEDS: MAXIPIME 2 GM in NS 100 ML IV SCH ×2 (09:50→22:25)
[2018-11-28] MEDS: AVODART PO SCH (09:51)
[2018-11-28] MEDS: COSOPT OPHTH SOLN BOTH EYES SCH ×2 (09:51→22:54)
[2018-11-28] MEDS: ADVAIR 500/50 DISKUS INH SCH ×2 (10:56→22:50)
--- NOTE | 2018-11-28 12:58 | PROGRESS NOTE ---
DATE: 11/28/2018 SUBJECTIVE: This morning, Mr. Basurto referred to be doing okay but before I went in, he had an episode of paroxysmal cough which was almost uncontrollable. He did say that just started today. OBJECTIVE: Vital Signs: Blood pressure is 104/63, pulse is 65, respirations are 22, temperature is 98.1 degrees. General Examination: Mr. Basurto is an 88-year-old, elderly, gentleman. He is in bed. He is not in any distress. HEENT: Mucosa is pink and moist. Anicteric. Acyanotic. Neck: Supple. There are some dilated veins on the upper chest. Respiratory: Air entry is bilaterally reduced. There is wheezing in both lung palumbo. Cardiovascular: Regular rate and rhythm. Abdomen: Soft, nontender. Bowel sounds present. Extremities: There is no pedal edema. [employer] MANAGER: The patient is awake, alert. He follows commands. Laboratory Data: WBC is down to 12.26, hemoglobin is 13.0, platelet count of 206,000. Chemistry is also reviewed. It is completely unremarkable. So far, microbiology data, blood cultures have been 48 hours negative. I have also reviewed the patient's current medications. He is on cefepime 2 g q.12, today is day 3, as well as vancomycin, today is day 3. ASSESSMENT: 1. Acute hypoxemic respiratory failure on presentation secondary to bibasilar pneumonia. I will continue with the current antibiotics. 2. Severe chronic obstructive pulmonary disease, in exacerbation on presentation, improving. The patient, however, still has some underlying wheezing. There is also concern that he might have aspiration, so we will do a swallow evaluation. We will also do a CT scan to rule out any acute pulmonary embolism. 3. Urinary retention secondary to obstructive uropathy from benign prostatic hypertrophy. The patient has been evaluated by urology. A Salazar catheter has been placed in. He will follow up with them accordingly. 4. History of Parkinson's disease. The patient is on carbidopa/levodopa and rivastigmine. PLAN: In general, Mr. Basurto seems to be doing a lot better. However, there was an episode of acute onset of shortness of breath with paroxysmal cough today, which is concerning for aspiration or any venous thromboembolism prophylaxis. We are going to get a CTA of the lungs as well a swallow evaluation. If those tests are negative, I think we will be able to get Mr. Basurto home tomorrow. cc: Johnson Ozuna MD
--- NOTE | 2018-11-28 13:53 | Diag Imaging Result Doc PS360 ---
CT ANGIOGRM PULMONARY ARTERIES - 11/28/2018 INDICATION: SOB. r/o PE TECHNIQUE: Axial CT images were obtained after administering intravenous contrast. Coronal MIP images were generated. COMPARISON: 11/24/2018 FINDINGS: There is no pulmonary embolism. There is no adenopathy. Heart size is normal with no pericardial effusion. There is a common bile duct stent in place. This is partially imaged. There is advanced COPD. There is some hazy bilateral lower lobe infiltrate stable from prior. There are some stable peripheral scarring in the upper lobes. Airways are fairly clear. Bony structures are intact. IMPRESSION: Negative for pulmonary embolism. Advanced COPD. Bilateral pneumonia. This exam was performed using automated exposure control, adjustment of mA or kV according to patient size, and/or use of iterative reconstruction technique Electronically signed by Nam Pierre 11/28/2018 1:50 PM
--- NOTE | 2018-11-28 13:55 | Diag Imaging Result Doc PS360 ---
BA SWALLOW W/VIDEO SPEECH THER - 11/28/2018 INDICATION: suspected aspirations TECHNIQUE: Total fluoroscopy time was 24 seconds. 134 images were obtained. COMPARISON: None FINDINGS: There is a fairly normal swallowing mechanism. No aspiration or penetration. No significant cricopharyngeal achalasia. There is some mild presbyesophagus with tertiary wave contractions in the esophagus, but no delay in clearance of the esophagus. IMPRESSION: No significant abnormality. No aspiration or penetration. Electronically signed by Nam Pierre 11/28/2018 1:52 PM
[2018-11-28] MEDS: FLOMAX PO SCH (22:53)
[2018-11-28] MEDS: XALATAN 0.005% OPH SOLN BOTH EYES SCH (22:53)
[2018-11-29] MEDS: DUONEB (A & A) INH SCH ×2 (03:37→10:14)
[2018-11-29 04:26] VITALS: BP 95/55
[2018-11-29] MEDS: VANCOMYCIN 1 GM/NS 1 GM/250 ML IVPB IV SCH (07:19)
[2018-11-29] MEDS: MAXIPIME 2 GM in NS 100 ML IV SCH ×2 (09:19→09:57)
[2018-11-29] MEDS: SINEMET CR 25/100 PO SCH ×2 (09:20→12:25)
[2018-11-29] MEDS: AVODART PO SCH (09:20)
[2018-11-29] MEDS: COSOPT OPHTH SOLN BOTH EYES SCH (09:20)
[2018-11-29] MEDS: CYMBALTA PO SCH (09:20)
[2018-11-29] MEDS: ADVAIR 500/50 DISKUS INH SCH (10:15)
[2018-11-29] MEDS ORDERED: AUGMENTIN PO SCH (10:15)
--- NOTE | 2018-11-29 15:22 | DISCHARGE SUMMARY ---
ADMISSION DATE: 11/24/2018 DISCHARGE DATE: 11/29/2018 ADMISSION DIAGNOSES: 1. Chronic obstructive pulmonary disease exacerbation. 2. Hyperlipidemia. 3. Leukocytosis. 4. Hyperglycemia. DISCHARGE DIAGNOSES: 1. Bilateral pneumonia. 2. Acute hypoxemic respiratory failure. 3. Urinary retention, status post Salazar catheter placement. 4. History of Parkinson's disease. DIAGNOSTIC PROCEDURES AND FINDINGS: Chest x-ray 11/24/2018: Emphysema, basilar infiltrates. Electrocardiogram 11/24/2018: Sinus tachycardia. No acute ST or T abnormalities. Chest CT 11/24/2018: Severe emphysema, basilar infiltrates. Chest x-ray 11/27/2018: Mild interval improvement. Barium swallow study 11/28/2018: No significant abnormality. Pulmonary arteriogram 11/28/2018: Negative for PE, advanced COPD, bilateral pneumonia. HOSPITAL COURSE: Mr. Basurto is an 88-year-old male who came to the ER with five days of cough, congestion, and shortness of breath. He did go to his PCP who placed him on Levaquin, although there was no improvement in symptoms. He came to the ER for progressive shortness of breath and on chest x-ray was found to have basilar infiltrates and mild leukocytosis. He was admitted for presumed COPD exacerbation. A chest CT was done which did show basilar infiltrates. He was placed on antibiotics, breathing treatments, and IV steroids. It was noted that he started to have urinary retention, which we felt was secondary to BPH, as he is already on Flomax. He was also placed on Avodart, however there was no improvement in his urinary output, so a Salazar catheter was placed and we consulted Dr. Acuna who agreed with Salazar catheter placement and Avodart and he will follow up with him in a week. Also, we checked a barium swallow study due to possibility of aspiration pneumonia. Speech study was negative. His breathing symptoms did improve and it was felt that he could finally be discharged home. His vitals are stable. He will be discharged home. DISCHARGE MEDICATIONS: Advair Diskus 500/50 one inhaled b.i.d., carbidopa/levodopa ER 25/100 1.5 tablets p.o. q six hours, Cosopt ophthalmic solution, Cymbalta 60 mg daily, Exelon patch one every 24 hours, Xalatan eye drops as directed, Augmentin 875 mg p.o. b.i.d. for five days, Avodart 0.5 mg p.o. daily, Deltasone 20 mg p.o. daily, doxycycline 100 mg p.o. b.i.d., Flomax 0.8 mg p.o. at bedtime. DISCHARGE DIET: Heart healthy. DISCHARGE ACTIVITY: Resume activity as tolerated. DISPOSITION AND OTHER DISCHARGE INSTRUCTIONS: The patient is discharged home to self-care. He is to follow up with Dr. Acuna as directed within the week and follow up with Dr. Lake within the next one to two weeks, or sooner if needed. He is to continue all medications as directed. Return to the ER or call 911 for worsening complaints or concerns. All questions were answered. DISCHARGE TIME: Greater than 35 minutes. Dictated by OLIVIA Monroe for Johnson Ozuna MD cc: OLIVIA Monroe MD William E. Hughes, MD Micah A. Howard, MD I have seen and examined Mr Basurto today. was at the bedside. He feels better and no complains. Mr Basurto is clinically stable for discharge today. I have reconciled his home medications. He does qualify for home oxygen therapy and has been arranged by the school social worker. All discharge instructions and follow up recommendations have been discussed with him and . I agree with the above discharge summary. RKQ MTDD
== END 2018-11-29 15:54 | disposition home health service (06) | DRG 193 ==
LOC: ED 17:01 → 3N 23:09 → SUATTDRO 23:09 → 3N 23:31
PROVIDERS: ATTEND Internal Medicine
CPT/HCPCS: 71020; 71046; 71250; 71275; 74230; 80048; 80053; 80069; 80202; 81001; 82306; 82550; 82805; 83605; 83735; 83880; 84100; 84484; 85025; 85379; 85610; 85730; 87040; 92611; 93005; 94640; 94761; 96365; 96366; 96375; 99285; A9270; J0692; J0696; J1630; J2930; J3370; J7030; J7040; J7050; Q9967